=== PATIENT | male | born 1985 | race Caucasian/White ===

== ENCOUNTER 2019-06-17 07:12 | Outpatient (CLI) | payer BC | END 2019-06-17 23:59 | disposition home or self-care (01) | LOC: CVU 07:12 | PROVIDERS: ATTEND Internal Medicine Cardiovascular Disease | DX: I34.1 Nonrheumatic mitral (valve) prolapse (principal); R00.2 Palpitations; I48.91 Unspecified atrial fibrillation | CPT/HCPCS: 93306 ==